=== PATIENT | female | born 1980 | race Caucasian/White ===

== ENCOUNTER 2017-07-05 03:50 | Emergency (ER) | payer OTHER ==
[~2017-07-05] VITALS: Ht 165.1 cm; Wt 82.2 kg
[~2017-07-05 03:50] MED LIST: ADDERALL20 MG PO; ALBUTEROL SULF8.5 GM IH; ATIVAN0.5 MG PO; CLARITIN10 M3 PO; DORYX50 MG PO; ESTRADIOL1 EAC7 TD; FLEXERIL5 MG PO; MOBIC15 MG PO; NAPROSYN500 MG PO; TESSALON PERLE100 MG PO; ULTRAM50 MG PO; VALACYCLOVIR500 MG PO; ZOLOFT100 MG PO; [UNRECOGNIZED DRUG - REMARK]
[2017-07-05 04:37] LABS: ADD MIUA? NO; BILIRUBIN NEGATIVE; BLOOD NEGATIVE; COLOR YELLOW ((YELLOW)); GLUCOSE (STRIP) NEGATIVE; KETONES NEGATIVE; LEUKOCYTES NEGATIVE; NITRITE NEGATIVE; PROTEIN (STRIP) NEGATIVE; SPECIFIC GRAVITY 1.008 (1.000-1.030); UCUL ADDED? NO; UROBILINOGEN 0.2 MG/DL (0.2-1.0)
[2017-07-05 04:39] LABS: EOSINOPHIL (%) 0.9 % (0-5); EOSINOPHIL COUNT 0.1 K/uL (0-0.3); HEMATOCRIT 44.1 % (36.0-46.0); IMMATURE GRANULOCYTE (%) 0.3 % (0.0-0.7); INSTRUMENT ABS NEUTROPHIL CT 11.1 K/uL; LYMPHOCYTE COUNT 2.1 K/uL (1.0-2.8); MCH 31.2 PG (29.0-34.0); MCHC 33.6 G/DL (30.0-36.0); MCV 92.8 FL (83-99); MEAN PLAT.VOLUME 10.9 uM^3 (9.5-12.4); MONOCYTE (%) 4.7 % (3-12); MONOCYTE COUNT 0.7 K/uL (0-0.8); NEUTROPHIL (%) 79.2 % (45-76); NEUTROPHIL COUNT 11.1 K/uL (1.8-6.4); PLATELET COUNT 258 K/uL (156-360); RBC DIS.WIDTH-CV 12.6 % (11.8-14.6); RBC DIS.WIDTH-SD 43.3 % (39-53); RED BLOOD COUNT 4.75 M/uL (3.80-5.20)
[2017-07-05 04:47] LABS: CHLORIDE 112 mEq/L (99-109); POTASSIUM 3.7 mEq/L (3.7-5.4); SODIUM 143 mEq/L (136-147)
[2017-07-05 04:50] LABS: GLUCOSE 103 mg/dL (70-99)
[2017-07-05 04:51] LABS: ANION GAP 8 MEQ/L (2-14); TOTAL BILIRUBIN 0.3 mg/dL (0.0-1.0)
[2017-07-05 04:52] LABS: SERUM ETHYL ALCOHOL 108 mg/dL
[2017-07-05 04:53] LABS: ALKALINE PHOSPHATASE 89 IU/L (3-129); GFR ESTIMATE (CALCULATED) > 59 mL/min/
[2017-07-05 04:54] LABS: UREA NITROGEN (BUN) 12 mg/dL (9-23)
[2017-07-05 04:57] LABS: LIPASE 35 U/L (1.0-51.0)
[2017-07-05 05:02] LABS: ADD MEDTOX COMMENT Y; AMPHETAMINE PRESUMPTIVE POSITIVE (500 ng/mL); BARBITURATES NEGATIVE (200 ng/mL); BENZODIAZEPINES NEGATIVE (150 ng/mL); COCAINE NEGATIVE (150 ng/mL); INTERNAL CONTROLS VALID? YES; METHADONE NEGATIVE (200 ng/mL); METHAMPHETAMINE NEGATIVE (500 ng/mL); OPIATES (MORPHINE) NEGATIVE (100 ng/mL); OXYCODONE NEGATIVE (100 ng/mL); PHENCYCLIDINE NEGATIVE (25 ng/mL); PROPOXYPHENE NEGATIVE (300 ng/mL); THC CANNABINOIDS PRESUMPTIVE POSITIVE (50 ng/mL); TRICYCLIC ANTIDEPRESSANTS NEGATIVE (300 ng/mL)
[2017-07-05 05:03] LABS: QUANTITATIVE HCG < 4.0 MIU/ML
[2017-07-05] MEDS ORDERED: MOTRIN800 MG PO (06:37)
[2017-07-05] MEDS ORDERED: FLEXERIL10 MG PO (06:37)
[2017-07-05 07:05] VITALS: BP 112/65
== END 2017-07-05 07:08 | disposition home or self-care (01) ==
LOC: EME 03:50
PROVIDERS: Emergency Medicine
PROC: 3E0234Z Introduction of Serum, Toxoid and Vaccine into Muscle, Percutaneous Approach (ICD-10-PCS; principal; 2017-07-05)
DX: M50.30 Other cervical disc degeneration, unspecified cervical region (principal); T14.8XXA Other injury of unspecified body region, initial encounter; S80.10XA Contusion of unspecified lower leg, initial encounter; F10.129 Alcohol abuse with intoxication, unspecified; Y90.5 Blood alcohol level of 100-119 mg/100 ml; V48.1XXA Car passenger injured in noncollision transport accident in nontraffic accident, initial encounter; Y92.488 Other paved roadways as the place of occurrence of the external cause; R51 Headache; R10.30 Lower abdominal pain, unspecified; Z23 Encounter for immunization; F41.9 Anxiety disorder, unspecified; F17.200 Nicotine dependence, unspecified, uncomplicated
CPT/HCPCS: 70450; 71010; 72125; 72170; 74177; 80053; 81003; 83690; 84702; 84999; 85025; 86850; 86900; 86901; 99281; 99285; G0480; J1885; J7040